=== PATIENT | female | born 1985 | race Hispanic/Latino ===

== ENCOUNTER 2021-09-02 21:28 | Emergency (ER) | payer OTHER ==
[~2021-09-02] VITALS: Ht 154.9 cm; Wt 86.2 kg
== END 2021-09-02 22:05 | disposition home or self-care (01) ==
LOC: ER 21:50
DX: R56.9 Unspecified convulsions (principal); G51.0 Bell's palsy; J45.909 Unspecified asthma, uncomplicated
CPT/HCPCS: 99283